=== PATIENT | male | born 1960 | race Caucasian/White ===

== ENCOUNTER 2016-10-27 18:06 | Inpatient (IN) | payer BC ==
[~2016-10-27] VITALS: Ht 182.9 cm; Wt 84.2 kg
[~2016-10-27 18:06] MED LIST: AMARYL4 MG PO; ASPIR-LOW81 MG PO; ASPIRIN 81M81 MG/TA2 PO; ATENOLOL; DIOVAN80 M1 PO; GENTAMICIN EYE D5 ML OP; HUMALOG100 U/ML SQ; LANTUS100 U/ML SQ; NITROQUICK0.4 MG SL; NORCO 325 MG-51 TAB PO; NOVOLIN 70/30 IN3 ML SC; PERCOCET 500 MG1 TAB PO; PLAVIX 75MG TAB75 MG PO; PRAVACHOL 40MG40 MG PO; PRINIVIL20 MG PO; TOPROL XL 25MG25 MG PO; ULTRAM 50MG TAB50 MG PO; VYTORIN
[2016-10-27 19:29] VITALS: BP 118/57; PULSE 76; TEMP 97.5
[2016-10-28 06:24] VITALS: BP 125/61; PULSE 73; TEMP 98.5
[2016-10-28 16:17] VITALS: BP 119/61; PULSE 75; TEMP 97.5
[2016-10-29 05:05] VITALS: BP 143/66; PULSE 72; TEMP 98.2
[2016-10-29 17:27] VITALS: BP 134/55; PULSE 72; TEMP 97.5
[2016-10-30 04:00] VITALS: BP 122/68; PULSE 74; TEMP 97.4
[2016-10-30 06:53] LABS: BASO # 0.1 (0.0-0.2); BASO % 0.9 % (0.0-2.0); EOS # 0.3 (0.0-0.7); EOS % 3.1 % (0-4.0); GRAN # 5.5 (1.4-6.5); GRAN % 61.6 % (42.2-75.2); LYMPH # 2.2 (1.2-3.4); MEAN CELL VOLUME 89 fl (80.0-100.0); MEAN CORPUSCULAR HGB CONC 31 g/dl (33.0-37.0); MONO # 0.8 (0.1-0.6); MONO % 8.8 % (1.7-9.3); PLATELET COUNT 613 K/mm3 (130-400); RED BLOOD COUNT 3.12 M/mm3 (4.20-5.60); REDCELL DISTRIBUTION WIDTH-CV 14.7 % (11.5-14.5); WHITE BLOOD COUNT 8.9 K/mm3 (4.8-10.8)
[2016-10-30 06:55] LABS: HEMATOCRIT 27.7 % (42.0-52.0); HEMOGLOBIN 8.7 g/dl (13.5-18.0); MEAN CORPUSCULAR HEMOGLOBIN 28 pg (27.0-31.0)
[2016-10-30 07:33] LABS: CALCIUM 8.2 mg/dL (8.4-10.2); CREATININE, serum 1.03 mg/dL (0.66-1.25); MAGNESIUM 1.9 mg/dL (1.6-2.3)
[2016-10-30 07:48] LABS: POTASSIUM 5.8 mmol/L (3.4-5.0)
[2016-10-30 16:18] VITALS: BP 133/60; PULSE 69; TEMP 97.9
[2016-10-31 04:06] VITALS: BP 131/66; PULSE 71; TEMP 98.3
[2016-10-31 06:41] LABS: CALCIUM 8.1 mg/dL (8.4-10.2); CREATININE, serum 0.95 mg/dL (0.66-1.25); POTASSIUM 5.3 mmol/L (3.4-5.0)
[2016-10-31 17:10] VITALS: BP 149/74; PULSE 80; TEMP 96.4
[2016-11-01 04:33] VITALS: BP 141/67; PULSE 72; TEMP 98.6
[2016-11-01 15:38] VITALS: BP 134/66; PULSE 75; TEMP 98.2
[2016-11-02 04:54] VITALS: BP 154/52; PULSE 70; TEMP 98.3
[2016-11-02 06:59] LABS: CALCIUM 7.9 mg/dL (8.4-10.2); CREATININE, serum 0.83 mg/dL (0.66-1.25); MAGNESIUM 1.9 mg/dL (1.6-2.3); POTASSIUM 4.1 mmol/L (3.4-5.0)
[2016-11-02 16:10] VITALS: BP 141/66; PULSE 76; TEMP 98.5
[2016-11-03 04:33] VITALS: BP 144/74; PULSE 74; TEMP 98.1
[2016-11-03] MEDS ORDERED: PRINIVIL20 MG PO (07:41)
[2016-11-03] MEDS ORDERED: NORCO 325 MG-7.1 TAB PO (07:42)
[2016-11-03] MEDS ORDERED: PEPCID 20MG TAB20 MG PO (07:42)
[2016-11-03] MEDS ORDERED: TYLENOL 325MG325 MG PO (07:42)
[2016-11-03] MEDS ORDERED: LEVEMIR SQ (07:45)
[2016-11-03] MEDS ORDERED: NOVOLOG FLEX100 U/ML SQ (07:46)
[2016-11-03] MEDS ORDERED: HUMALOG100 U/ML SQ (07:46)
== END 2016-11-03 11:07 | disposition home or self-care (01) | DRG 948 ==
PROVIDERS: Internal Medicine
DX: R53.81 Other malaise (principal); I70.261 Atherosclerosis of native arteries of extremities with gangrene, right leg; Z89.511 Acquired absence of right leg below knee; E11.65 Type 2 diabetes mellitus with hyperglycemia; I10 Essential (primary) hypertension; I25.10 Atherosclerotic heart disease of native coronary artery without angina pectoris; F17.210 Nicotine dependence, cigarettes, uncomplicated; D64.9 Anemia, unspecified; E87.5 Hyperkalemia
CPT/HCPCS: 99222-AI; 99232-AI; 99239; J1650; J1815

== ENCOUNTER → 2017-08-24 | Outpatient (REF) ==
[~2017-08-24] MED LIST changes: +LEVEMIR SQ; +NORCO 325 MG-7.1 TAB PO; +NOVOLOG FLEX100 U/ML SQ; +PEPCID 20MG TAB20 MG PO; +TYLENOL 325MG325 MG PO
[2017-08-24 13:19] LABS: CALCIUM 9.1 mg/dL (8.4-10.2); CREATININE, serum 1.51 mg/dL (0.66-1.25); POTASSIUM 5.1 mmol/L (3.4-5.0)
== END ==
LOC: ZMSC 11:34
PROVIDERS: Specialist
DX: Z01.89 Encounter for other specified special examinations (principal)

== ENCOUNTER 2018-02-28 14:34 | Inpatient (IN) | payer BC ==
[~2018-02-28] VITALS: Ht 182.9 cm; Wt 81.3 kg
[2018-02-28] VITALS (473 sets, daily range): BP systolic 148; BP diastolic 55; PULSE 86; TEMP 98.3; O2SAT 99–100
[2018-02-28 18:00] LABS: BASO # 0.1 (0.0-0.2); BASO % 0.3 % (0.0-2.0); GRAN # 15.1 (1.4-6.5); GRAN % 90.6 % (42.2-75.2); LYMPH # 0.8 (1.2-3.4); LYMPH % 4.5 % (20.0-51.0); MEAN CELL VOLUME 87 fl (80.0-100.0); MEAN CORPUSCULAR HGB CONC 32 g/dl (33.0-37.0); MEAN PLATELET VOLUME 9.8 fl (7.4-10.4); MONO # 0.6 (0.1-0.6); MONO % 3.7 % (1.7-9.3); PLATELET COUNT 423 K/mm3 (130-400); RED BLOOD COUNT 2.93 M/mm3 (4.20-5.60); REDCELL DISTRIBUTION WIDTH-CV 16.5 % (11.5-14.5)
[2018-02-28 18:04] LABS: HEMATOCRIT 25.4 % (42.0-52.0); HEMOGLOBIN 8.1 g/dl (13.5-18.0); MEAN CORPUSCULAR HEMOGLOBIN 28 pg (27.0-31.0)
[2018-02-28 18:06] LABS: ALBUMIN 2.3 gm/dL (3.5-5.0); BILIRUBIN,TOTAL 0.1 mg/dL (0.0-1.0); CREATININE, serum 2.42 mg/dL (0.66-1.25); TOTAL PROTEIN 5.2 gm/dL (6.4-8.2)
[2018-02-28 18:08] LABS: POTASSIUM 6.2 mmol/L (3.4-5.0)
[2018-02-28 18:30] LABS: INR 1.4 (0.8-3.0); PROTHROMBIN TIME 15.6 SECONDS (9.7-12.8)
[2018-02-28 18:50] LABS: ARTERIAL BLD GAS O2 SATURATION 98.1 % (92-100); ARTERIAL BLD GAS TCO2 CT 18.6; ARTERIAL BLOOD GAS BASE EXCESS -8.7 (-2-2); ARTERIAL BLOOD GAS HCO3 17.4 meq/L (22-26); ARTERIAL BLOOD GAS PCO2 38.5 mmHg (35-45); ARTERIAL BLOOD GAS PO2 146.9 mmHg (80-100); ARTERIAL BLOOD GAS pH 7.27 (7.35-7.45)
[2018-02-28 19:43] LABS: ARTERIAL BLD GAS O2 SATURATION 98.6 % (92-100); ARTERIAL BLD GAS TCO2 CT 19.1; ARTERIAL BLOOD GAS BASE EXCESS -6.3 (-2-2); ARTERIAL BLOOD GAS HCO3 18.1 meq/L (22-26); ARTERIAL BLOOD GAS PCO2 31.5 mmHg (35-45); ARTERIAL BLOOD GAS pH 7.38 (7.35-7.45)
[2018-02-28 19:44] LABS: ARTERIAL BLOOD GAS PO2 188.6 mmHg (80-100)
[2018-02-28] MEDS ORDERED: NORVASC 5MG5 MG/TAB PO (20:44)
[2018-02-28] MEDS ORDERED: PROBIOTIC ACID1 EAC3 PO (20:45)
[2018-02-28] MEDS ORDERED: PEPCID 20MG TAB20 MG PO (20:45)
[2018-02-28] MEDS ORDERED: ZOLOFT 50MG50 MG PO (20:46)
[2018-02-28] MEDS ORDERED: DESYREL 50MG50 MG PO (20:46)
[2018-02-28] MEDS ORDERED: NATURAL IRON65 MG PO (20:47)
[2018-02-28] MEDS ORDERED: MELAT3MGTAB PO (20:47)
[2018-02-28] MEDS ORDERED: LIPITOR 40MG TA40 MG PO (20:48)
[2018-02-28] MEDS ORDERED: TOPROL XL100 MG PO (20:50)
[2018-02-28 21:46] LABS: CALCIUM 6.6 mg/dL (8.4-10.2); CREATININE, serum 2.31 mg/dL (0.66-1.25); POTASSIUM 5.6 mmol/L (3.4-5.0)
[2018-03-01] VITALS (841 sets, daily range): BP systolic 155–166; BP diastolic 57–92; PULSE 86–96; TEMP 97.4–98.5; O2SAT 99–100
[2018-03-01 05:58] LABS: MEAN CELL VOLUME 84 fl (80.0-100.0); MEAN CORPUSCULAR HEMOGLOBIN 27 pg (27.0-31.0); MEAN CORPUSCULAR HGB CONC 32 g/dl (33.0-37.0); MEAN PLATELET VOLUME 9.8 fl (7.4-10.4); PLATELET COUNT 400 K/mm3 (130-400); RED BLOOD COUNT 2.57 M/mm3 (4.20-5.60); REDCELL DISTRIBUTION WIDTH-CV 16.6 % (11.5-14.5)
[2018-03-01 05:59] LABS: HEMATOCRIT 21.7 % (42.0-52.0)
[2018-03-01 06:09] LABS: ALANINE AMINOTRANSFERASE 29 U/L (21-72); ALBUMIN 2.1 gm/dL (3.5-5.0); ALKALINE PHOSPHATASE 89 U/L (50-136); ANION GAP 8 mmol/L (7-16); AST,SGOT 16 U/L (15-37); BILIRUBIN,TOTAL < 0.1 mg/dL (0.0-1.0); BLOOD UREA NITROGEN 48 mg/dL (9-20); CALCIUM 6.6 mg/dL (8.4-10.2); CARBON DIOXIDE 24 mmol/L (22-30); CHLORIDE 97 mmol/L (98-107); CREATININE, serum 2.38 mg/dL (0.66-1.25); GLUCOSE 136 mg/dL (74-106); MAGNESIUM 1.5 mg/dL (1.6-2.3); PHOSPHOROUS 4.5 mg/dL (2.5-4.5); POTASSIUM 4.7 mmol/L (3.4-5.0); SODIUM 129 mmol/L (137-145); TOTAL PROTEIN 4.8 gm/dL (6.4-8.2)
[2018-03-01 06:33] LABS: BAND 46 % (0-10); LYMPHOCYTE 11 % (20.0-51.0); NEUTROPHILS 41 % (42.0-75.2); PLATELET ESTIMATE INCREASED (NORMAL); POLYCHROMASIA 1+
[2018-03-01 06:34] LABS: ANISOCYTOSIS 1+; HYPOCHROMIA 1+
[2018-03-01 06:39] LABS: ARTERIAL BLD GAS O2 SATURATION 84.9 % (92-100); ARTERIAL BLD GAS TCO2 CT 23.9; ARTERIAL BLOOD GAS BASE EXCESS -0.9 (-2-2); ARTERIAL BLOOD GAS HCO3 22.9 meq/L (22-26); ARTERIAL BLOOD GAS PO2 50.8 mmHg (80-100); ARTERIAL BLOOD GAS pH 7.45 (7.35-7.45)
[2018-03-01 08:44] LABS: HEMATOCRIT 21.5 % (42.0-52.0); HEMOGLOBIN 7.2 g/dl (13.5-18.0)
== END 2018-03-01 14:30 | disposition short-term general hospital (02) | DRG 871 ==
LOC: IMCU 14:34 → ICU 15:45
PROVIDERS: Hospitalist; Internal Medicine Nephrology; Internal Medicine Pulmonary Disease
PROC: 5A1935Z Respiratory Ventilation, Less than 24 Consecutive Hours (ICD-10-PCS; principal; 2018-02-28)
PROC: 02HV33Z Insertion of Infusion Device into Superior Vena Cava, Percutaneous Approach (ICD-10-PCS; 2018-02-28)
DX: A41.9 Sepsis, unspecified organism (principal); K65.0 Generalized (acute) peritonitis; I33.0 Acute and subacute infective endocarditis; J96.01 Acute respiratory failure with hypoxia; K63.1 Perforation of intestine (nontraumatic); R65.21 Severe sepsis with septic shock; E87.2 Acidosis; N17.9 Acute kidney failure, unspecified; J90 Pleural effusion, not elsewhere classified; E87.1 Hypo-osmolality and hyponatremia; I12.9 Hypertensive chronic kidney disease with stage 1 through stage 4 chronic kidney disease, or unspecified chronic kidney disease; E11.22 Type 2 diabetes mellitus with diabetic chronic kidney disease; N18.9 Chronic kidney disease, unspecified; I25.10 Atherosclerotic heart disease of native coronary artery without angina pectoris; Z93.3 Colostomy status; Z79.4 Long term (current) use of insulin; Z87.891 Personal history of nicotine dependence; E87.5 Hyperkalemia
CPT/HCPCS: 99223-AI; 99239; J1450; J1650; J1815; J1940; J1956; J2185; J2250; J3010; J3370; J3475; J7050; J7120

== ENCOUNTER → 2021-01-22 | Outpatient (CLI) | payer MEDICARE, BC ==
[~2021-01-22] MED LIST changes: +DESYREL 50MG50 MG PO; +LIPITOR 40MG TA40 MG PO; +MELAT3MGTAB PO; +NATURAL IRON65 MG PO; +NORVASC 5MG5 MG/TAB PO; +PROBIOTIC ACID1 EAC3 PO; +TOPROL XL100 MG PO; +ZOLOFT 50MG50 MG PO
== END ==
LOC: COL.VAS 13:48
DX: N18.4 Chronic kidney disease, stage 4 (severe) (principal)

== ENCOUNTER 2021-06-03 12:17 | Inpatient (IN) | payer MEDICARE, BC ==
[~2021-06-03] VITALS: Ht 182.9 cm; Wt 92.2 kg
[2021-06-03 12:59] LABS: BASO # 0.1 K/mm3 (0.0-0.2); BASO % 0.6 % (0.0-2.0); EOS % 0.1 % (0-4.0); GRAN # 8.1 K/mm3 (1.4-6.5); GRAN % 83.8 % (42.2-75.2); LYMPH % 10.1 % (20.0-51.0); MEAN CELL VOLUME 89 fl (80.0-100.0); MEAN CORPUSCULAR HGB CONC 32 g/dl (33.0-37.0); MEAN PLATELET VOLUME 10.7 fl (7.4-10.4); MONO # 0.5 K/mm3 (0.1-0.6); PLATELET COUNT 315 K/mm3 (130-400); RED BLOOD COUNT 3.39 M/mm3 (4.20-5.60); REDCELL DISTRIBUTION WIDTH-CV 16.9 % (11.5-14.5)
[2021-06-03 13:07] LABS: HEMATOCRIT 30.1 % (42.0-52.0); HEMOGLOBIN 9.5 g/dl (13.5-18.0); MEAN CORPUSCULAR HEMOGLOBIN 28 pg (27.0-31.0)
[2021-06-03 13:10] LABS: ALBUMIN 2.8 gm/dL (3.4-4.8); BILIRUBIN,TOTAL 0.3 mg/dL (0.2-1.2); CALCIUM 8.4 mg/dL (8.4-10.2); CREATININE, serum 5.38 mg/dL (0.72-1.25); POTASSIUM 4.4 mmol/L (3.5-4.5); TOTAL PROTEIN 6.1 gm/dL (6.2-8.1)
[2021-06-03 13:21] LABS: TROPONIN-I 0.316 ng/mL (0.00-0.033)
[2021-06-03 13:23] LABS: ARTERIAL BLD GAS O2 SATURATION 95.4 % (92-100); ARTERIAL BLD GAS TCO2 CT 24.5; ARTERIAL BLOOD GAS BASE EXCESS -0.7 (-2-2); ARTERIAL BLOOD GAS HCO3 23.4 meq/L (22-26); ARTERIAL BLOOD GAS PCO2 36.6 mmHg (35-45); ARTERIAL BLOOD GAS PO2 77.5 mmHg (80-100); ARTERIAL BLOOD GAS pH 7.42 (7.35-7.45)
[2021-06-03] MEDS ORDERED: RENVELA800 MG PO (13:49)
[2021-06-03] MEDS ORDERED: SALONPAS1 EACH TP (13:51)
[2021-06-03] MEDS ORDERED: TRULICITY1.5 MG/0.5 SQ (13:53)
[2021-06-03] MEDS ORDERED: DESYREL 50MG50 MG PO (13:53)
[2021-06-03] MEDS ORDERED: TOPROL XL100 MG PO (13:55)
[2021-06-03] MEDS ORDERED: NORVASC 5MG5 MG/TAB PO (13:55)
[2021-06-03] MEDS ORDERED: ASPIRIN 81M81 MG/TA2 PO (13:59)
[2021-06-03] MEDS ORDERED: LASIX 80MG TABL80 MG PO (13:59)
[2021-06-03] MEDS ORDERED: PEPCID 20MG TAB20 MG PO (13:59)
[2021-06-03] MEDS ORDERED: NEPHPLEX RX1 TAB PO (14:00)
[2021-06-03] MEDS ORDERED: ZOLOFT 50MG50 MG PO (14:00)
[2021-06-03] MEDS ORDERED: LEVOXYL0.025 MG PO (14:02)
[2021-06-03] MEDS ORDERED: LEVEMIR100 U/ML SQ (14:03)
[2021-06-03] MEDS ORDERED: LIPITOR 40MG TA40 MG PO (14:03)
[2021-06-03] MEDS ORDERED: RESTORIL 1515 MG/CAP PO (14:03)
[2021-06-03] MEDS ORDERED: MELATIN 3 MG-11 TAB PO (14:03)
[2021-06-03] MEDS ORDERED: PROBIOTIC ACID1 EAC3 PO (14:04)
[2021-06-03] MEDS ORDERED: ELIQUIS 5MG PO (14:04)
[2021-06-03] MEDS ORDERED: FERROUS SU325 MG/TAB PO (14:04)
[2021-06-03] MEDS ORDERED: NOVOLOG FLEX100 U/ML SQ (14:05)
[2021-06-03] MEDS ORDERED: MIRALAX PA17 GM/Dose PO (14:05)
[2021-06-03] MEDS ORDERED: BIOFREEZE 0.2%-1 GE1 TOP (14:05)
[2021-06-03 23:10] VITALS: PULSE 79
[2021-06-03 23:28] VITALS: BP 130/108; PULSE 87; TEMP 97.8
[2021-06-04 04:20] VITALS: BP 143/70; PULSE 78; TEMP 97.4
[2021-06-04 07:01] LABS: BASO % 0.2 % (0.0-2.0); GRAN # 3.8 K/mm3 (1.4-6.5); GRAN % 77.9 % (42.2-75.2); LYMPH # 0.7 K/mm3 (1.2-3.4); LYMPH % 14.3 % (20.0-51.0); MEAN CELL VOLUME 88 fl (80.0-100.0); MEAN CORPUSCULAR HGB CONC 32 g/dl (33.0-37.0); MONO # 0.4 K/mm3 (0.1-0.6); MONO % 7.2 % (1.7-9.3); PLATELET COUNT 245 K/mm3 (130-400); RED BLOOD COUNT 2.98 M/mm3 (4.20-5.60); REDCELL DISTRIBUTION WIDTH-CV 16.5 % (11.5-14.5)
[2021-06-04 07:03] LABS: HEMATOCRIT 26.1 % (42.0-52.0); HEMOGLOBIN 8.3 g/dl (13.5-18.0); MEAN CORPUSCULAR HEMOGLOBIN 28 pg (27-31)
[2021-06-04 07:13] LABS: ALBUMIN 2.3 gm/dL (3.4-4.8); C-REACTIVE PROTEIN 4.6 mg/dL (0.00-0.50); CALCIUM 7.4 mg/dL (8.4-10.2); CREATININE, serum 6.16 mg/dL (0.72-1.25)
[2021-06-04 07:19] LABS: POTASSIUM 5.9 mmol/L (3.5-4.5)
[2021-06-04 08:05] VITALS: BP 146/61; PULSE 82; TEMP 98.2
[2021-06-04 12:19] VITALS: BP 128/56; PULSE 88; TEMP 98.2
[2021-06-04 17:17] VITALS: BP 153/82; PULSE 82; TEMP 98.4
[2021-06-04 20:48] VITALS: BP 143/53; PULSE 80; TEMP 98
[2021-06-04 23:18] LABS: TRANSFERRIN 127 mg/dL (163-344)
[2021-06-04 23:31] LABS: HEPATITIS B SURFACE ANTIBODY <2.0 (()); HEPATITIS B SURFACE ANTIGEN Negative (Negative); HEPATITIS C VIRUS ANTIBODY Negative (Negative)
[2021-06-05] VITALS (7 sets, daily range): BP systolic 138–169; BP diastolic 61–74; PULSE 75–97; TEMP 97.6–98.8
[2021-06-05 07:36] LABS: BASO % 0.3 % (0.0-2.0); GRAN # 5.6 K/mm3 (1.4-6.5); LYMPH # 0.9 K/mm3 (1.2-3.4); LYMPH % 12.6 % (20.0-51.0); MEAN CELL VOLUME 86 fl (80.0-100.0); MEAN CORPUSCULAR HGB CONC 32 g/dl (33.0-37.0); MEAN PLATELET VOLUME 10.5 fl (7.4-10.4); MONO # 0.7 K/mm3 (0.1-0.6); MONO % 9.7 % (1.7-9.3); PLATELET COUNT 255 K/mm3 (130-400); RED BLOOD COUNT 3.27 M/mm3 (4.20-5.60); REDCELL DISTRIBUTION WIDTH-CV 16.6 % (11.5-14.5)
[2021-06-05 07:38] LABS: HEMATOCRIT 28.2 % (42.0-52.0); HEMOGLOBIN 9.1 g/dl (13.5-18.0); MEAN CORPUSCULAR HEMOGLOBIN 28 pg (27-31)
[2021-06-05 07:55] LABS: ALBUMIN 2.3 gm/dL (3.4-4.8); C-REACTIVE PROTEIN 4.52 mg/dL (0.00-0.50); CALCIUM 7.9 mg/dL (8.4-10.2); CREATININE, serum 4.06 mg/dL (0.72-1.25); MAGNESIUM 1.9 mg/dL (1.6-2.6); POTASSIUM 4.3 mmol/L (3.5-4.5)
[2021-06-06 03:46] VITALS: BP 175/92; PULSE 71; TEMP 98.1
[2021-06-06 06:36] LABS: BASO % 0.1 % (0.0-2.0); GRAN # 5.9 K/mm3 (1.4-6.5); GRAN % 81.9 % (42.2-75.2); HEMOGLOBIN 10.2 g/dl (13.5-18.0); LYMPH # 0.7 K/mm3 (1.2-3.4); LYMPH % 10.3 % (20.0-51.0); MEAN CELL VOLUME 86 fl (80.0-100.0); MEAN CORPUSCULAR HEMOGLOBIN 28 pg (27-31); MEAN CORPUSCULAR HGB CONC 32 g/dl (33.0-37.0); MEAN PLATELET VOLUME 11.1 fl (7.4-10.4); MONO # 0.5 K/mm3 (0.1-0.6); MONO % 6.4 % (1.7-9.3); PLATELET COUNT 272 K/mm3 (130-400); RED BLOOD COUNT 3.69 M/mm3 (4.20-5.60); REDCELL DISTRIBUTION WIDTH-CV 16.2 % (11.5-14.5)
[2021-06-06 06:43] LABS: ALBUMIN 2.2 gm/dL (3.4-4.8); C-REACTIVE PROTEIN 2.91 mg/dL (0.00-0.50); CALCIUM 7.5 mg/dL (8.4-10.2); CREATININE, serum 5.29 mg/dL (0.72-1.25); MAGNESIUM 1.9 mg/dL (1.6-2.6); POTASSIUM 4.7 mmol/L (3.5-4.5)
[2021-06-06 06:46] LABS: HEMATOCRIT 31.6 % (42.0-52.0)
[2021-06-06 07:12] VITALS: BP 157/67; PULSE 75; TEMP 97.7
[2021-06-06 12:08] VITALS: BP 145/66; PULSE 78; TEMP 98.1
[2021-06-06 16:00] VITALS: BP 168/92; PULSE 72; TEMP 98.1
[2021-06-06 20:00] VITALS: BP 168/89; PULSE 82; TEMP 98.2
[2021-06-07] VITALS (7 sets, daily range): BP systolic 149–172; BP diastolic 63–81; PULSE 66–84; TEMP 97.8–98.2
[2021-06-07 07:08] LABS: BASO % 0.2 % (0.0-2.0); GRAN # 4.3 K/mm3 (1.4-6.5); GRAN % 69.8 % (42.2-75.2); HEMOGLOBIN 10.1 g/dl (13.5-18.0); LYMPH # 1.3 K/mm3 (1.2-3.4); LYMPH % 21.2 % (20.0-51.0); MEAN CELL VOLUME 86 fl (80.0-100.0); MEAN CORPUSCULAR HEMOGLOBIN 28 pg (27-31); MEAN CORPUSCULAR HGB CONC 32 g/dl (33.0-37.0); MEAN PLATELET VOLUME 11.1 fl (7.4-10.4); MONO # 0.5 K/mm3 (0.1-0.6); MONO % 7.8 % (1.7-9.3); PLATELET COUNT 233 K/mm3 (130-400); RED BLOOD COUNT 3.62 M/mm3 (4.20-5.60); REDCELL DISTRIBUTION WIDTH-CV 16.3 % (11.5-14.5)
[2021-06-07 07:12] LABS: HEMATOCRIT 31.2 % (42.0-52.0)
[2021-06-07 07:18] LABS: ALBUMIN 2.1 gm/dL (3.4-4.8); C-REACTIVE PROTEIN 2.45 mg/dL (0.00-0.50); CALCIUM 7.8 mg/dL (8.4-10.2); CREATININE, serum 3.62 mg/dL (0.72-1.25); MAGNESIUM 1.8 mg/dL (1.6-2.6); PHOSPHOROUS 3.9 mg/dL (2.3-4.7); POTASSIUM 3.9 mmol/L (3.5-4.5)
[2021-06-08 03:10] VITALS: BP 164/79; PULSE 61; TEMP 97.5
[2021-06-08 08:22] LABS: ALBUMIN 2.2 gm/dL (3.4-4.8); C-REACTIVE PROTEIN 1.66 mg/dL (0.00-0.50); CALCIUM 7.6 mg/dL (8.4-10.2); CREATININE, serum 4.67 mg/dL (0.72-1.25); MAGNESIUM 1.8 mg/dL (1.6-2.6); PHOSPHOROUS 4.4 mg/dL (2.3-4.7); POTASSIUM 4.3 mmol/L (3.5-4.5)
[2021-06-08 08:49] LABS: HEMOGLOBIN 10.4 g/dl (13.5-18.0); MEAN CELL VOLUME 84 fl (80.0-100.0); MEAN CORPUSCULAR HEMOGLOBIN 28 pg (27-31); MEAN CORPUSCULAR HGB CONC 33 g/dl (33.0-37.0); MEAN PLATELET VOLUME 11.2 fl (7.4-10.4); PLATELET COUNT 244 K/mm3 (130-400); RED BLOOD COUNT 3.75 M/mm3 (4.20-5.60); REDCELL DISTRIBUTION WIDTH-CV 15.9 % (11.5-14.5)
[2021-06-08 08:52] LABS: HEMATOCRIT 31.6 % (42.0-52.0)
[2021-06-08 09:04] VITALS: BP 165/84; PULSE 70; TEMP 97.9
[2021-06-08 11:49] LABS: BAND 1 % (0-10); LYMPHOCYTE 18 % (20.0-51.0); NEUTROPHILS 79 % (42.0-75.2)
[2021-06-08 11:53] LABS: SCHISTOCYTES 1+
[2021-06-08 11:54] LABS: ANISOCYTOSIS 1+; HYPOCHROMIA 1+; PLATELET ESTIMATE NORMAL (NORMAL)
[2021-06-08 12:27] VITALS: BP 163/87; PULSE 67; TEMP 98.3
[2021-06-08 16:33] VITALS: BP 186/84; PULSE 71; TEMP 98.1
[2021-06-08 20:18] VITALS: BP 196/80; PULSE 70; TEMP 98.7
[2021-06-08 21:55] VITALS: BP 172/82; PULSE 69; TEMP 98.7
[2021-06-09 00:05] VITALS: BP 163/84; PULSE 65; TEMP 97.2
[2021-06-09 04:30] VITALS: BP 165/97; PULSE 67; TEMP 97.4
[2021-06-09 07:59] VITALS: BP 171/83; PULSE 68; TEMP 97.7
[2021-06-09 08:04] LABS: ALBUMIN 2.3 gm/dL (3.4-4.8); CALCIUM 7.5 mg/dL (8.4-10.2); CREATININE, serum 6.01 mg/dL (0.72-1.25); POTASSIUM 4.8 mmol/L (3.5-4.5)
[2021-06-09 10:34] LABS: MEAN CELL VOLUME 83 fl (80.0-100.0); MEAN CORPUSCULAR HEMOGLOBIN 28 pg (27-31); MEAN CORPUSCULAR HGB CONC 34 g/dl (33.0-37.0); MEAN PLATELET VOLUME 11.3 fl (7.4-10.4); PLATELET COUNT 299 K/mm3 (130-400); RED BLOOD COUNT 3.96 M/mm3 (4.20-5.60); REDCELL DISTRIBUTION WIDTH-CV 15.7 % (11.5-14.5)
[2021-06-09 10:37] LABS: HEMATOCRIT 32.7 % (42.0-52.0)
[2021-06-09 12:17] VITALS: BP 161/86; PULSE 71; TEMP 98.1
[2021-06-09 12:19] LABS: ANISOCYTOSIS 1+; BAND 2 % (0-10); LYMPHOCYTE 17 % (20.0-51.0); NEUTROPHILS 75 % (42.0-75.2); PLATELET ESTIMATE NORMAL (NORMAL)
[2021-06-09 16:24] VITALS: BP 135/69; PULSE 69; TEMP 97.7
[2021-06-09 17:00] LABS: ARTERIAL BLD GAS O2 SATURATION 94.7 % (92-100); ARTERIAL BLD GAS TCO2 CT 24.8; ARTERIAL BLOOD GAS HCO3 23.8 meq/L (22-26); ARTERIAL BLOOD GAS PCO2 32.6 mmHg (35-45); ARTERIAL BLOOD GAS PO2 71.5 mmHg (80-100); ARTERIAL BLOOD GAS pH 7.48 (7.35-7.45)
[2021-06-09 20:00] VITALS: BP 164/81; PULSE 71; TEMP 98.2
[2021-06-10 00:29] VITALS: BP 174/84; PULSE 65; TEMP 97.8
[2021-06-10 04:26] VITALS: BP 158/79; PULSE 70; TEMP 97.5
[2021-06-10 07:28] LABS: ALBUMIN 2.3 gm/dL (3.4-4.8); BILIRUBIN,TOTAL 0.2 mg/dL (0.2-1.2); CALCIUM 7.4 mg/dL (8.4-10.2); CREATININE, serum 4.36 mg/dL (0.72-1.25); POTASSIUM 4.1 mmol/L (3.5-4.5)
[2021-06-10 08:30] VITALS: BP 170/95; PULSE 70; TEMP 98
[2021-06-10 11:53] VITALS: BP 141/51; PULSE 69; TEMP 98.7
[2021-06-10 15:51] VITALS: BP 137/65; PULSE 73; TEMP 97.8
[2021-06-10 19:55] VITALS: BP 134/86; PULSE 77; TEMP 98.5
[2021-06-11] VITALS (8 sets, daily range): BP systolic 112–154; BP diastolic 64–87; PULSE 65–76; TEMP 96.5–98.5
[2021-06-11 07:27] LABS: CALCIUM 6.7 mg/dL (8.4-10.2); CREATININE, serum 5.15 mg/dL (0.72-1.25); MAGNESIUM 1.9 mg/dL (1.6-2.6); POTASSIUM 4.3 mmol/L (3.5-4.5)
[2021-06-11 09:43] LABS: MEAN CELL VOLUME 84 fl (80.0-100.0); MEAN CORPUSCULAR HGB CONC 33 g/dl (33.0-37.0); MEAN PLATELET VOLUME 10.9 fl (7.4-10.4); PLATELET COUNT 275 K/mm3 (130-400); RED BLOOD COUNT 3.48 M/mm3 (4.20-5.60); REDCELL DISTRIBUTION WIDTH-CV 15.9 % (11.5-14.5)
[2021-06-11 09:52] LABS: HEMATOCRIT 29.1 % (42.0-52.0); HEMOGLOBIN 9.6 g/dl (13.5-18.0); MEAN CORPUSCULAR HEMOGLOBIN 28 pg (27-31)
[2021-06-11 10:21] LABS: BAND 3 % (0-10); EOSINOPHIL 1 % (0-4); LYMPHOCYTE 34 % (20.0-51.0); NEUTROPHILS 61 % (42.0-75.2); NUCLEATED RED BLOOD CELL 1 (0-6); PLATELET ESTIMATE NORMAL (NORMAL)
[2021-06-11 10:22] LABS: ANISOCYTOSIS 1+
[2021-06-12 04:55] VITALS: BP 143/70; PULSE 74; TEMP 98
[2021-06-12 06:47] LABS: ALBUMIN 2.2 gm/dL (3.4-4.8); CALCIUM 6.9 mg/dL (8.4-10.2); CREATININE, serum 3.65 mg/dL (0.72-1.25); PHOSPHOROUS 2.8 mg/dL (2.3-4.7); POTASSIUM 4.3 mmol/L (3.5-4.5)
[2021-06-12 08:10] VITALS: BP 144/60; PULSE 73; TEMP 98.2
[2021-06-12 11:12] VITALS: BP 145/63; PULSE 76; TEMP 97.9
[2021-06-12 12:46] LABS: COLLECTION METHOD CLEAN CATCH
[2021-06-12 12:52] LABS: PH 7 (5-8); SQUAMOUS EPITHELIAL None Seen /hpf (0-10); URINE APPEARANCE Clear (CLEAR/HAZY); URINE BACTERIA None Seen /hpf (NONE SEEN); URINE BILIRUBIN Negative (NEGATIVE); URINE BLOOD Negative (NEGATIVE); URINE COLOR Yellow (YELLOW); URINE GLUCOSE 2+ (NEGATIVE); URINE KETONE Negative (NEGATIVE); URINE LEUKOCYTE ESTERASE Negative (NEGATIVE); URINE NITRATE Negative (NEGATIVE); URINE PROTEIN(semi-quant) 2+ (NEGATIVE); URINE RBC 0-2 /hpf (0-2); URINE UROBILINOGEN Negative (NEGATIVE)
[2021-06-12 15:57] VITALS: BP 123/58; PULSE 72; TEMP 98
[2021-06-12 19:22] VITALS: BP 124/85; PULSE 76; TEMP 98.3
[2021-06-13 00:04] VITALS: BP 145/65; PULSE 78; TEMP 97.6
[2021-06-13 03:19] VITALS: BP 139/70; PULSE 72; TEMP 98.4
[2021-06-13 07:37] LABS: BASO % 0.2 % (0.0-2.0); EOS # 0.3 K/mm3 (0.0-0.7); EOS % 3.3 % (0.0-4.0); GRAN # 5.6 K/mm3 (1.4-6.5); GRAN % 65.3 % (42.2-75.2); LYMPH # 2.1 K/mm3 (1.2-3.4); LYMPH % 24.3 % (20.0-51.0); MEAN CELL VOLUME 85 fl (80.0-100.0); MEAN CORPUSCULAR HGB CONC 33 g/dl (33.0-37.0); MEAN PLATELET VOLUME 10.8 fl (7.4-10.4); MONO # 0.5 K/mm3 (0.1-0.6); MONO % 5.6 % (1.7-9.3); PLATELET COUNT 205 K/mm3 (130-400); RED BLOOD COUNT 3.02 M/mm3 (4.20-5.60); REDCELL DISTRIBUTION WIDTH-CV 15.5 % (11.5-14.5)
[2021-06-13 07:43] LABS: HEMATOCRIT 25.6 % (42.0-52.0); HEMOGLOBIN 8.5 g/dl (13.5-18.0); MEAN CORPUSCULAR HEMOGLOBIN 28 pg (27-31)
[2021-06-13 07:51] LABS: CALCIUM 6.8 mg/dL (8.4-10.2); CREATININE, serum 4.8 mg/dL (0.72-1.25); POTASSIUM 4.6 mmol/L (3.5-4.5)
[2021-06-13 08:01] VITALS: BP 134/68; PULSE 73; TEMP 98.1
[2021-06-13] MEDS ORDERED: TOPROL XL 25MG25 MG PO (09:52)
[2021-06-13] MEDS ORDERED: NORVASC 10MG10 MG PO (09:52)
[2021-06-13 12:18] VITALS: BP 152/75; PULSE 73; TEMP 97.9
[2021-06-13 14:04] VITALS: BP 131/53; PULSE 80; TEMP 98.3
== END 2021-06-13 14:29 | DRG 177 ==
LOC: COL.ER 12:17 → MEDICAL 13:37
PROVIDERS: Emergency Medicine; Internal Medicine; Internal Medicine Nephrology; Registered Nurse; Student in an Organized Health Care Education/Training Program; ADMIT Internal Medicine
PROC: XW033E5 Introduction of Remdesivir Anti-infective into Peripheral Vein, Percutaneous Approach, New Technology Group 5 (ICD-10-PCS; principal; 2021-06-03)
PROC: 06HY33Z Insertion of Infusion Device into Lower Vein, Percutaneous Approach (ICD-10-PCS; 2021-06-03)
PROC: 5A1D70Z Performance of Urinary Filtration, Intermittent, Less than 6 Hours Per Day (ICD-10-PCS; 2021-06-13)
DX: U07.1 COVID-19 (principal); J12.82 Pneumonia due to coronavirus disease 2019; N18.6 End stage renal disease; J96.01 Acute respiratory failure with hypoxia; I50.23 Acute on chronic systolic (congestive) heart failure; I13.2 Hypertensive heart and chronic kidney disease with heart failure and with stage 5 chronic kidney disease, or end stage renal disease; I47.2 Ventricular tachycardia; G93.49 Other encephalopathy; K21.9 Gastro-esophageal reflux disease without esophagitis; E11.22 Type 2 diabetes mellitus with diabetic chronic kidney disease; I48.0 Paroxysmal atrial fibrillation; I25.10 Atherosclerotic heart disease of native coronary artery without angina pectoris; E03.9 Hypothyroidism, unspecified; E78.5 Hyperlipidemia, unspecified; E11.649 Type 2 diabetes mellitus with hypoglycemia without coma; R91.1 Solitary pulmonary nodule; D63.1 Anemia in chronic kidney disease; E11.65 Type 2 diabetes mellitus with hyperglycemia; F19.959 Other psychoactive substance use, unspecified with psychoactive substance-induced psychotic disorder, unspecified; T38.0X5A Adverse effect of glucocorticoids and synthetic analogues, initial encounter; Z99.2 Dependence on renal dialysis; Z86.73 Personal history of transient ischemic attack (TIA), and cerebral infarction without residual deficits; Z79.82 Long term (current) use of aspirin; Z79.4 Long term (current) use of insulin; Z86.718 Personal history of other venous thrombosis and embolism; Z79.01 Long term (current) use of anticoagulants; Z95.5 Presence of coronary angioplasty implant and graft
CPT/HCPCS: 99223-AI; 99232-AI; 99233-AI; 99239; J0696; J1100; J1644; J1756; J1815; J1940; J2997; J7030; J7050; J8540; Q5105

== ENCOUNTER → 2022-02-14 | Outpatient (CLI) | payer MEDICARE, BC ==
[~2022-02-14] MED LIST changes: +BIOFREEZE 0.2%-1 GE1 TOP; +ELIQUIS 5MG PO; +FERROUS SU325 MG/TAB PO; +LASIX 80MG TABL80 MG PO; +LEVEMIR100 U/ML SQ; +LEVOXYL0.025 MG PO; +MELATIN 3 MG-11 TAB PO; +MIRALAX PA17 GM/Dose PO; +NEPHPLEX RX1 TAB PO; +NORVASC 10MG10 MG PO; +RENVELA800 MG PO; +RESTORIL 1515 MG/CAP PO; +SALONPAS1 EACH TP; +TRULICITY1.5 MG/0.5 SQ
== END ==
LOC: COL.LAB 14:00
DX: E87.5 Hyperkalemia (principal)

== ENCOUNTER → 2022-02-26 | Outpatient (CLI) | payer MEDICARE, BC | LOC: COL.VAS 08:29 | DX: I77.0 Arteriovenous fistula, acquired (principal) ==

== ENCOUNTER 2022-03-10 09:22 | Emergency (ER) | payer MEDICARE, BC ==
[~2022-03-10] VITALS: Ht 182.9 cm; Wt 86.4 kg
[2022-03-10 09:38] VITALS: TEMP 97.8
[2022-03-10 10:19] LABS: BASO # 0.1 K/mm3 (0.0-0.2); BASO % 0.8 % (0.0-2.0); EOS # 0.3 K/mm3 (0.0-0.7); EOS % 2.7 % (0.0-4.0); GRAN # 8.3 K/mm3 (1.4-6.5); GRAN % 71.4 % (42.2-75.2); HEMATOCRIT 35.2 % (42.0-52.0); HEMOGLOBIN 11.8 g/dl (13.5-18.0); LYMPH # 2.1 K/mm3 (1.2-3.4); LYMPH % 18.2 % (20.0-51.0); MEAN CELL VOLUME 97 fl (80.0-100.0); MEAN CORPUSCULAR HEMOGLOBIN 33 pg (27-31); MEAN CORPUSCULAR HGB CONC 34 g/dl (33.0-37.0); MEAN PLATELET VOLUME 9.7 fl (7.4-10.4); MONO # 0.7 K/mm3 (0.1-0.6); MONO % 6.4 % (1.7-9.3); PLATELET COUNT 293 K/mm3 (130-400); RED BLOOD COUNT 3.62 M/mm3 (4.20-5.60); REDCELL DISTRIBUTION WIDTH-CV 14.8 % (11.5-14.5)
[2022-03-10 10:38] LABS: ALBUMIN 3.1 gm/dL (3.4-4.8); BILIRUBIN,TOTAL 0.3 mg/dL (0.2-1.2); CALCIUM 8.3 mg/dL (8.4-10.2); POTASSIUM 5.7 mmol/L (3.5-4.5); TOTAL PROTEIN 6.6 gm/dL (6.2-8.1)
[2022-03-10 15:00] VITALS: BP 131/61; PULSE 68
== END 2022-03-10 15:03 | disposition home or self-care (01) ==
LOC: COL.ER 09:22
PROVIDERS: Family Medicine
DX: I82.B11 Acute embolism and thrombosis of right subclavian vein (principal); I12.9 Hypertensive chronic kidney disease with stage 1 through stage 4 chronic kidney disease, or unspecified chronic kidney disease; N18.9 Chronic kidney disease, unspecified; Z99.2 Dependence on renal dialysis

== ENCOUNTER 2022-09-24 06:56 | Outpatient (CLI) | payer MEDICARE, BC ==
[2022-09-24] VITALS (9 sets, daily range): BP systolic 124–159; BP diastolic 46–70; PULSE 66–97; TEMP 97.7
[~2022-09-24] VITALS: Ht 183 cm; Wt 94.0 kg
[~2022-09-24 06:56] MED LIST changes: +CEPHALEXIN500 M1 PO; +IMDUR 30MG30 MG/TAB PO; +SODIUM BICARBO650 MG PO
[2022-09-24] MEDS ORDERED: RENVELA800 MG PO (08:57)
[2022-09-24] MEDS ORDERED: ZOLOFT 50MG50 MG PO (08:58)
[2022-09-24] MEDS ORDERED: ISORDIL TITRADO30 MG PO (08:58)
[2022-09-24] MEDS ORDERED: LASIX 80MG TABL80 MG PO (08:58)
[2022-09-24] MEDS ORDERED: ASPIRIN 81M81 MG/TA2 PO (08:59)
[2022-09-24] MEDS ORDERED: ELIQUIS 5MG PO (09:00)
[2022-09-24] MEDS ORDERED: NORVASC 10MG10 MG PO (09:01)
[2022-09-24] MEDS ORDERED: TIROSINT25 MC1 PO (09:01)
[2022-09-24] MEDS ORDERED: KAPSPARGO SPRIN25 MG PO (09:03)
[2022-09-24] MEDS ORDERED: LIPITOR 40MG TA40 MG PO (09:03)
[2022-09-24] MEDS ORDERED: SODIUM BICARBO650 MG PO (09:04)
[2022-09-24] MEDS ORDERED: DESYREL 50MG50 MG PO (09:04)
[2022-09-24] MEDS ORDERED: LEVEMIR100 U/ML SQ (09:05)
[2022-09-24] MEDS ORDERED: NOVOLOGMIX70/30 SQ (09:05)
--- NOTE | 2022-09-24 09:10 | NUR ---
SEE MERGE FOR ALL MEDICATIONS, VITAL SIGNS AND INTERVENTIONS.
--- NOTE | 2022-09-24 10:00 | NUR ---
PT RETURNED FROM ARCHITECTURAL ENGINEER. VITAL WNL. SNACKS GIVEN. LUNCH ORDERED
--- NOTE | 2022-09-24 11:59 | NUR ---
IV DISCONTINUED. PT ATE 85% OF HIS LUNCH. DISCHARGE INSTRUCTIONS GONE OVER WITH PT AND . BOTH STATE UNDERSTANDING
== END 2022-09-24 12:09 | disposition home or self-care (01) ==
LOC: COL.CAR 06:56
DX: I77.0 Arteriovenous fistula, acquired (principal); N18.6 End stage renal disease
CPT/HCPCS: C1769; J1644; J2250; J3010; Q9967

== ENCOUNTER 2022-10-26 06:36 | Inpatient (IN) | payer MEDICARE, BC ==
[~2022-10-26] VITALS: Ht 182.9 cm; Wt 97.8 kg
[~2022-10-26 06:36] MED LIST changes: +ISORDIL TITRADO30 MG PO; +KAPSPARGO SPRIN25 MG PO; +NOVOLOGMIX70/30 SQ; +TIROSINT25 MC1 PO
[2022-10-26] MEDS ORDERED: NEPHROCAP PO (16:56)
--- NOTE | 2022-10-26 16:58 | NUR ---
THIS RN UPDATED MED REC AND ENTERED A PLAN OF CARE.
[2022-10-26 17:00] VITALS: BP_SYST 134
--- NOTE | 2022-10-26 17:00 | NUR ---
Pt to room 356 on medical floor. Pt is accompanied by Ursula, significant other. Pt is A&Ox4, forgetful. Port in R upper chest CDI. LUE restricted. 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 LLE edematous, with blood blister noted on greater toe. No request at this time. Call light within reach. Fall precautions in place.
[2022-10-26 17:20] VITALS: BP 134/64; PULSE 80; TEMP 98.2
[2022-10-26] MEDS ORDERED: NOVOLOG 100U100 U/M1 SQ (18:47)
[2022-10-26 19:34] VITALS: BP 146/67; PULSE 79; TEMP 98.1
--- NOTE | 2022-10-26 19:40 | NUR ---
THIS RN REVIEWED PT INTAKE AND ASSESSMENT COMPLETED BY GRACE AND AGREES WITH DOCUMENTATION. IV STARTED TO R WRIST.
[2022-10-26 20:50] VITALS: BP_SYST 146
[2022-10-26 23:01] LABS: BASO # 0.1 K/mm3 (0.0-0.2); BASO % 0.8 % (0.0-2.0); EOS # 0.4 K/mm3 (0.0-0.7); EOS % 3.1 % (0.0-4.0); GRAN # 7.6 K/mm3 (1.4-6.5); GRAN % 64.5 % (42.2-75.2); LYMPH # 2.8 K/mm3 (1.2-3.4); LYMPH % 23.8 % (20.0-51.0); MEAN CELL VOLUME 97 fl (80.0-100.0); MEAN CORPUSCULAR HGB CONC 35 g/dl (33.0-37.0); MEAN PLATELET VOLUME 9.7 fl (7.4-10.4); MONO # 0.9 K/mm3 (0.1-0.6); MONO % 7.3 % (1.7-9.3); PLATELET COUNT 266 K/mm3 (130-400); RED BLOOD COUNT 2.73 M/mm3 (4.20-5.60); REDCELL DISTRIBUTION WIDTH-CV 14.4 % (11.5-14.5)
[2022-10-26 23:08] LABS: HEMATOCRIT 26.4 % (42.0-52.0); HEMOGLOBIN 9.1 g/dl (13.5-18.0); MEAN CORPUSCULAR HEMOGLOBIN 33 pg (27-31)
[2022-10-26 23:16] LABS: ALBUMIN 2.8 gm/dL (3.4-4.8); BILIRUBIN,TOTAL 0.3 mg/dL (0.2-1.2); CALCIUM 8.2 mg/dL (8.4-10.2); CREATININE, serum 6.24 mg/dL (0.72-1.25); PHOSPHOROUS 2.4 mg/dL (2.3-4.7); POTASSIUM 4.6 mmol/L (3.5-4.5); TOTAL PROTEIN 5.9 gm/dL (6.2-8.1)
[2022-10-26 23:38] VITALS: BP 161/68; PULSE 81; TEMP 97.5
[2022-10-27] VITALS (9 sets, daily range): BP systolic 161–176; BP diastolic 71–85; PULSE 78–84; TEMP 97.6–98.2
--- NOTE | 2022-10-27 08:24 | NUR ---
Pt laying in bed. Morning medications administered per eMAR. Shift assessment completed. Telemetry remains on - SR. Dialysis cath in R upper chest remains CDI. INT in R wrist patent, no edema or redness. LUE restricted. Morning blood glucose 348, obtained after breakfast, OK to treat per VANESSA Banegas. No request at this time. Call light within reach. Fall precautions in place.
--- NOTE | 2022-10-27 10:47 | NUR ---
Initial visit; Patient thanked Vice President Of Business Development for looking in on him and offering God's blessings. Vice President Of Business Development will keep patient in her prayers.
--- NOTE | 2022-10-27 12:37 | NUR ---
BP 161/72 - PRN hydralazine administered.
--- NOTE | 2022-10-27 14:30 | NUR ---
Pt to dialysis.
--- NOTE | 2022-10-27 15:31 | NUR ---
SW met with patient to compete intake and discuss discharge plan. Patient reports that he lives at home with his life partner Ursula ([phone]) outside of [place]. He reports to being independent with his ADL"s but no longer drives. 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 Patient has no home oxygen needs. PCP is and he sees Dr. Guzman for Nephrology needs. He utilizes [facility] in for prescriptions. Patient denies having a DPOA-HC estbalished. He does not wish to create one, but verbalizes that he and Ursula share children together. SW reviewed PT/OT recs for home health with the patient and presented the [email or web address] list of home health agencies to him for review. Patient verbalizes that he has had home health in the past but is unable to recall what agencies it was with. Discharge plan: Home with Home Health.
--- NOTE | 2022-10-27 17:52 | NUR ---
Pt returned to medical floor from dialysis.
[2022-10-28] VITALS (12 sets, daily range): BP systolic 134–173; BP diastolic 70–82; PULSE 73–82; TEMP 97.6–98.3
--- NOTE | 2022-10-28 04:37 | NUR ---
09/27 2201 PT. IS SITTING IN BED WATCHING TV, NO SIGNS OF DISTRESS NOTED, ASKED IF I COULD DUMP THE WATER IN HIS GLASS IN ORDER FOR HIM TO BE ABLE TO HAVE SOME POP, PT. HAD 400 LEFT IN HIS GLASS THAT I DUMPED, AND THE POP, ALONG WITH A LITTLE ICE WAS 240, PT. ASKED ABOUT A SNACK TOO, HE STATED HE DIND'T REMEMBER EATING SUPPER, LET PT. KNOW HE NEEDED TO WAIT TO HAVE A SNACK HIS BS WAS HIGH RIGHT NOW, PT. STATED UNDERSTANDING, WILL CONTINUE TO MONITOR.
[2022-10-28 06:28] LABS: BASO # 0.1 K/mm3 (0.0-0.2); EOS # 0.4 K/mm3 (0.0-0.7); EOS % 4.5 % (0.0-4.0); GRAN # 5.1 K/mm3 (1.4-6.5); GRAN % 61.9 % (42.2-75.2); HEMOGLOBIN 10.1 g/dl (13.5-18.0); LYMPH % 24.7 % (20.0-51.0); MEAN CELL VOLUME 96 fl (80.0-100.0); MEAN CORPUSCULAR HEMOGLOBIN 33 pg (27-31); MEAN CORPUSCULAR HGB CONC 35 g/dl (33.0-37.0); MEAN PLATELET VOLUME 9.7 fl (7.4-10.4); MONO # 0.6 K/mm3 (0.1-0.6); MONO % 7.4 % (1.7-9.3); PLATELET COUNT 265 K/mm3 (130-400); RED BLOOD COUNT 3.05 M/mm3 (4.20-5.60); REDCELL DISTRIBUTION WIDTH-CV 14.4 % (11.5-14.5)
[2022-10-28 06:32] LABS: HEMATOCRIT 29.2 % (42.0-52.0)
[2022-10-28 06:38] LABS: ALBUMIN 2.6 gm/dL (3.4-4.8); CALCIUM 8.4 mg/dL (8.4-10.2); CREATININE, serum 4.95 mg/dL (0.72-1.25); PHOSPHOROUS 2.9 mg/dL (2.3-4.7); POTASSIUM 4.4 mmol/L (3.5-4.5)
--- NOTE | 2022-10-28 08:20 | NUR ---
Pt to dialysis via bed.
--- NOTE | 2022-10-28 13:00 | NUR ---
Pt returns from dialysis. Pt A&O x 4 but forgetful. Per ground surveillance systems operator, approx 4.5L fluid dialyzed. Pt at bedside. Sitting up in bed, feeding self. Has requested add'l fluid, reinforced 1000ml fluid restriction. also reminds pt he is in hospital r/t fluid overload. LLE and BUE noted to have minimal edema.
--- NOTE | 2022-10-28 18:09 | NUR ---
Travis Molina RN left msg for Edwar Chapman NP to clarify/increase Renvala dose. Per pt spouse, pt takes Renvala 800mg, 3 tabs TID with meals.
--- NOTE | 2022-10-28 21:25 | NUR ---
[address] MARTINEZ OF PT.'S BS WHICH WAS 409, SLIDING SCALE PROTOCOL SAYS TO GIVE 12 UNITS, AND NOTIFY PROVIDER, DR. MARTINEZ INCREASED THE PT.'S LEVEMIR DOSE FROM 15 TO 20 UNITS, AND SAID TO GIVE THE 12 UNITS OF SLIDING SCALE ORDERED.
[2022-10-29] VITALS (8 sets, daily range): BP systolic 130–182; BP diastolic 61–87; PULSE 69–85; TEMP 97.4–97.8
--- NOTE | 2022-10-29 04:03 | NUR ---
0147 TELE NOTIFIED ME THAT THE PT. HAD 10 BEATS OF VTACH, I WENT TO ASSESS THE PT. AND HE WAS SLEEPING, MANUEL Martino OBTAINED A NEW SET OF VITALS, BP WAS 150/64, PULSE WAS 85,ORDERED AN EKG PER PROTOCOL BEFORE NOTIFYING DR. LEMUSOF RESULTS, EKG SHOWED SINUS RHYTHM WITH OCCASIONAL PVC'S, DR. LEMUS ORDERED AMIODARONE 400 MG PO BID, TO START WITH THE FIRST DOSE NOW, WILL GIVE THE PT. A DOSE SOON PHARMACY VERIFIES THE ORDER.
[2022-10-29 07:08] LABS: ALBUMIN 2.7 gm/dL (3.4-4.8); CALCIUM 8.6 mg/dL (8.4-10.2); CREATININE, serum 3.99 mg/dL (0.72-1.25); PHOSPHOROUS 3.3 mg/dL (2.3-4.7); POTASSIUM 4.6 mmol/L (3.5-4.5)
[2022-10-29 07:41] LABS: BASO # 0.1 K/mm3 (0.0-0.2); BASO % 0.7 % (0.0-2.0); EOS # 0.1 K/mm3 (0.0-0.7); EOS % 1.4 % (0.0-4.0); GRAN # 6.1 K/mm3 (1.4-6.5); GRAN % 72.1 % (42.2-75.2); HEMATOCRIT 30.4 % (42.0-52.0); HEMOGLOBIN 10.1 g/dl (13.5-18.0); LYMPH # 1.3 K/mm3 (1.2-3.4); LYMPH % 15.8 % (20.0-51.0); MEAN CELL VOLUME 99 fl (80.0-100.0); MEAN CORPUSCULAR HEMOGLOBIN 33 pg (27-31); MEAN CORPUSCULAR HGB CONC 33 g/dl (33.0-37.0); MEAN PLATELET VOLUME 9.9 fl (7.4-10.4); MONO # 0.8 K/mm3 (0.1-0.6); MONO % 9.2 % (1.7-9.3); PLATELET COUNT 248 K/mm3 (130-400); RED BLOOD COUNT 3.08 M/mm3 (4.20-5.60); REDCELL DISTRIBUTION WIDTH-CV 14.9 % (11.5-14.5)
--- NOTE | 2022-10-29 09:00 | NUR ---
Pt awake and alert this AM, no complaints of pain, SOB or nausea. AM assessment complete. Low BG this AM, resolved with treatment. VANESSA Bey aware. Resting in bed with bed in the lowest position, call light within reach. Educated on fluid restriction and diet.
--- NOTE | 2022-10-29 11:12 | NUR ---
VANESSA Bey informed of high blood glucose of 440. Instructed to give highest dose on sliding scale with no additional insulin. Order readback by this RN.
[2022-10-29] MEDS ORDERED: CORDARONE200 MG/TAB PO (15:03)
--- NOTE | 2022-10-29 20:11 | NUR ---
1849 PT.'S SO RETURNED, DAYTIME RN HAD GONE OVER DISCHARGE PAPERWORK WITH THE PT., BUT HIS SO HAD A COUPLE QUESTIONS ABOUT HIS PAPERWORK THAT I TRIED TO ANSWER FOR HER, REMOVED PT.'S IV FROM HIS R) WRIST, TIP INTACT, NO SIGNS OF REDNESS OR INFLAMATION, PT.'S SO HELPED HIME GET DRESSED, AND THEN MANUEL FRANZ HELPED WALK THEM OUT, PT. LEFT THE FLOOR AT 1958
== END 2022-10-29 19:59 | disposition home or self-care (01) | DRG 640 ==
LOC: MEDICAL 06:36
PROVIDERS: ADMIT Internal Medicine Nephrology
PROC: 5A1D70Z Performance of Urinary Filtration, Intermittent, Less than 6 Hours Per Day (ICD-10-PCS; principal; 2022-10-26)
DX: E87.70 Fluid overload, unspecified (principal); N18.6 End stage renal disease; I12.0 Hypertensive chronic kidney disease with stage 5 chronic kidney disease or end stage renal disease; I48.20 Chronic atrial fibrillation, unspecified; Z99.2 Dependence on renal dialysis; D63.1 Anemia in chronic kidney disease; E11.319 Type 2 diabetes mellitus with unspecified diabetic retinopathy without macular edema; Z79.4 Long term (current) use of insulin; E11.21 Type 2 diabetes mellitus with diabetic nephropathy; E11.42 Type 2 diabetes mellitus with diabetic polyneuropathy; Z79.82 Long term (current) use of aspirin
CPT/HCPCS: J1815; Q5105